=== PATIENT | female | born 1985 | race Caucasian/White ===

== ENCOUNTER → 2016-10-10 | Outpatient (CLI) | payer OTHER | LOC: OPONC 14:55 | DX: A69.20 Lyme disease, unspecified (principal) | CPT/HCPCS: 91017 ==

== ENCOUNTER → 2016-10-11 | Outpatient (CLI) | payer OTHER | END | disposition home or self-care (01) | LOC: SPEC 07:52 | DX: Z45.2 Encounter for adjustment and management of vascular access device (principal); A69.20 Lyme disease, unspecified ==

== ENCOUNTER → 2017-02-16 | Outpatient (CLI) | payer OTHER | LOC: MRI 11:27 | DX: M47.896 Other spondylosis, lumbar region (principal); G43.801 Other migraine, not intractable, with status migrainosus; M54.2 Cervicalgia ==